=== PATIENT | female | born 1955 | race Caucasian/White ===

== ENCOUNTER 2017-01-22 22:24 | Emergency (ER) | payer MEDICAID ==
[~2017-01-22 22:24] MED LIST: ACET1TAB40 PO; ACET500C5 PO
[2017-01-23] MEDS ORDERED: morphine 4 MG/ML VIAL ONE (03:15)
[2017-01-23] MEDS ORDERED: ONDANSETRON 4 MG INJ ONE (03:15)
[2017-01-23 07:46] LABS: ADD UMIC NO; UR ASCORBIC ACID NEGATIVE (NEGATIVE); UR BILIRUBIN (Dip) NEGATIVE (NEGATIVE); UR BLOOD (Dip) NEGATIVE (NEGATIVE); UR CLARITY CLEAR (CLEAR); UR COLOR YELLOW (YELLOW); UR GLUCOSE (Dip) NEGATIVE (NEGATIVE); UR KETONES (Dip) NEGATIVE (NEGATIVE); UR LEUKOCYTE ESTERASE (Dip) NEGATIVE Leu/ul (NEGATIVE); UR NITRITE (Dip) NEGATIVE (NEGATIVE); UR RBC 2 /HPF (0-5); UR SPECIFIC GRAVITY (Dip) 1.018 (1.003-1.030); UR TOTAL PROTEIN (Dip) NEGATIVE (NEGATIVE); UR UROBILINOGEN (Dip) NEGATIVE (NEGATIVE)
--- NOTE | 2017-01-23 08:33 | RADRPT ---
PROCEDURE: CT ABDOMEN/PELVIS WITHOUT CONTRAST CLINICAL INDICATION: 61-year-old female with right lower quadrant pain. TECHNIQUE: The study was performed utilizing a [employer] VCT 64-slice CT scanner. Direct axia l sections were obtained through the abdomen and pelvis without the use of intravenous contrast mate rial. Sagittal and coronal reformations were obtained. One or more of the following dose reduction t echniques were utilized: automated exposure control, adjustment of the mA and/or kV according to pat ient's size or use of iterative reconstruction technique. The images were reviewed on a PACS workst [employer]. CTD/vol = 15.5 mGy; Total Exam DLP = 930.4 mGy-cm. COMPARISON: None. FINDINGS: Right coronary artery calcifications are noted. There is no evidence for significant pleural effusio n. The liver has a normal size and contour without focal areas of abnormal density. No intrahepatic nor extrahepatic biliary ductal dilatation is seen. The gallbladder is lateral in position but with out calcified stones, significant wall thickening or pericholecystic fluid. No biliary stones are ev ident. The pancreas is without areas of abnormal attenuation. The spleen is identified and has a no rmal size without abnormal density. The adrenal glands are unremarkable. The kidneys are without abn ormal density. No hydroureteronephrosis nor nephroureterolithiasis is evident. The urinary bladder c ontains urine. There is mild retained stool throughout the colon without gross bowel obstruction. T he cecum is in the right upper quadrant. The appendix is markedly diminutive but without abnormal t hickening or periappendiceal inflammatory changes. The uterus is diminutive. There is no significant free fluid. The aortoiliac vessels are mildly calcified but without aneurysmal dilatati on. Degenerative changes are seen within the spine. There is a left hip arthroplasty present. IMPRESSION: 1. No CT evidence for obstructive uropathy or renal calculi. 2. Mild retained stool without obstruction. 3. No CT evidence for appendicitis. 4. Degenerative changes within the spine. 5. Left hip arthroplasty. .Kyle Laguerre MD, Date Time Electronically viewed and signed by .Kyle Laguerre MD, on 01/23/2017 04:05 .[place]
[2017-01-23 10:27] LABS: ABNORMAL IP MESSAGE 1; BASOPHILS % 0.6 % (0.0-2.0); EOSINOPHILS # 0.1 10^3/ul (0.0-0.5); EOSINOPHILS % 2.9 % (0.0-7.0); HEMATOCRIT 38.8 % (37.0-47.0); HEMOGLOBIN 13.1 g/dl (12.0-16.0); LYMPHOCYTES # 1.6 10^3/ul (0.8-2.9); LYMPHOCYTES % 50.5 % (15.0-51.0); MEAN CORPUSCULAR HGB CONC 33.8 g/dl (32.0-37.0); MEAN CORPUSCULAR VOLUME 94.6 fl (82.0-101.0); MEAN PLATELET VOLUME 13.3 fl (7.4-10.4); MONOCYTE # 0.4 10^3/ul (0.3-0.9); MONOCYTES % 12.2 % (0.0-11.0); NEUTROPHILS % 33.5 % (39.0-77.0); PLATELET COUNT 137 10^3/UL (140-415); RED CELL DISTRIBUTION WIDTH 12.6 % (11.5-14.5); WHITE BLOOD COUNT 3.1 10^3/ul (4.8-10.8)
--- NOTE | 2017-01-26 14:03 | ERD ---
ER Documentation Chief Complaint Date/Time DATE: 01/26/17 TIME: 13:47 Chief Complaint abdominal pain HPI This 61 year old female comes in for L mid abd pain and RLQ abd pain for 2 days. Nausea intermittent. The pain is dull. No diarrhea, fever, chills, or vaginal symptoms. Possible constipation. No chest pain. ROS All systems reviewed and are negative except as per history of present illness. Medications Home Meds Active Scripts Acetaminophen with Codeine (Acetaminophen-Cod #3 Tablet) 1 Each Tablet, 1 TAB PO Q6H Y for PAIN, #5 TAB Prov:Nilda Reyes PA-C 03/19/16 Acetaminophen* (Tylophen*) 500 Mg Capsule, 1 CAP PO Q6H Y for PAIN AND OR ELEVATED TEMP, #30 CAP Prov:Nilda Reyes PA-C 03/19/16 Allergies Allergies: Coded Allergies: No Known Allergy (Unverified , 02/28/14) PMhx/Soc History of Surgery: Yes (left hip replacement) Anesthesia Reaction: No Hx Neurological Disorder: No Hx Respiratory Disorders: No Hx Cardiac Disorders: No Hx Psychiatric Problems: No Hx Miscellaneous Medical Probl: Yes (arthritis) Hx Alcohol Use: No Hx Substance Use: No Hx Tobacco Use: No Physical Exam Vitals AFVSS Physical Exam Const: [] No distress Head: Atraumatic Eyes: Normal Conjunctiva ENT: Normal External Ears, Nose and Mouth. Neck: Full range of motion..~ No meningismus. Resp: Clear to auscultation bilaterally Cardio: Regular rate and rhythm, no murmurs Abd: Soft, mild multifocal tenderness without guarding or rebound, non distended. Normal bowel sounds Skin: No petechiae or rashes Back: No midline or flank tenderness Ext: No cyanosis, or edema Neur: Awake and alert Psych: Normal Mood and Affect Result Diagram: 01/23/17 0200 Results 24 hrs Laboratory Tests Test 01/23/17 02:00 01/23/17 07:15 01/23/17 10:59 White Blood Count 3.110^3/ul Red Blood Count 4.1010^6/ul Hemoglobin 13.1g/dl Hematocrit 38.8% Mean Corpuscular Volume 94.6fl Mean Corpuscular Hemoglobin 32.0pg Mean Corpuscular Hemoglobin Concent 33.8g/dl Red Cell Distribution Width 12.6% Platelet Count 09542^3/UL Mean Platelet Volume 13.3fl Neutrophils % 33.5% Lymphocytes % 50.5% Monocytes % 12.2% Eosinophils % 2.9% Basophils % 0.6% Nucleated Red Blood Cells % 0.0/100WBC Neutrophils # (Manual) 1.010^3/ul Lymphocytes # 1.610^3/ul Monocytes # 0.410^3/ul Eosinophils # 0.110^3/ul Basophils # 0.010^3/ul Nucleated Red Blood Cells # 0.010^3/ul Urine Color YELLOW Urine Clarity CLEAR Urine pH 5.0 Urine Specific [place] 1.018 Urine Ketones NEGATIVEmg/dL Urine Nitrite NEGATIVEmg/dL Urine Bilirubin NEGATIVEmg/dL Urine Urobilinogen NEGATIVEmg/dL Urine Leukocyte Esterase NEGATIVELeu/ul Urine Microscopic RBC 2/HPF Urine Microscopic WBC 0/HPF Urine Hemoglobin NEGATIVEmg/dL Urine Glucose NEGATIVEmg/dL Urine Total Protein NEGATIVEmg/dl Lab Scanned Report [id number] Current Medications Medications (Trade) Dose Ordered Sig/Amanda Route PRN Reason Start Time Stop Time Status Last Admin Dose Admin Ondansetron HCl (Zofran Inj) 4 mg STK-MED ONCE .ROUTE 01/23/17 03:15 01/23/17 09:01 DC Morphine Sulfate (morphine) 4 mg STK-MED ONCE .ROUTE 01/23/17 03:15 01/23/17 09:02 DC Procedures/MDM Likely constipation causing abdominal pain. Possible viral intestinal illness as well as evidenced by suppression of WBC count with lymphocytic predominance. Given Toradol and zofran IV as well as a liter of NS. Improved condition. Discharging with magnesium citrate, miralax and naproxen. PCP follow up in 2 days and return precautions. CT abd/pelvis interpretation: I see no acute process other than constipation with retained stool throughout colon. I see no obstruction, fat stranding, free air, or fractures. Departure Diagnosis: Primary Impression: AP (abdominal pain) Additional Impression: Constipation Condition: Stable ROSEMARY PERRY DO Jan 26, 2017 14:03
== END 2017-01-23 07:55 | disposition home or self-care (01) ==
LOC: E/R 22:24
DX: K59.00 Constipation, unspecified (principal); Z96.642 Presence of left artificial hip joint
CPT/HCPCS: 74176; 81003; 85025; J2270; J2405; Z7502

== ENCOUNTER 2017-04-21 22:42 | Emergency (ER) | payer OTHER ==
[~2017-04-21] VITALS: Ht 139.7 cm; Wt 80.4 kg
[2017-04-21 22:49] VITALS: Ht 139.7 cm; Wt 80.4 kg
[2017-04-22] MEDS ORDERED: FAMOTIDINE 20 MG TAB PO STA (02:45)
[2017-04-22 02:55] LABS: BASOPHILS % 0.9 % (0.0-2.0); EOSINOPHILS # 0.1 10^3/ul (0.0-0.5); EOSINOPHILS % 3.2 % (0.0-7.0); HEMATOCRIT 36.3 % (37.0-47.0); HEMOGLOBIN 12.3 g/dl (12.0-16.0); LYMPHOCYTES # 1.5 10^3/ul (0.8-2.9); LYMPHOCYTES % 43.4 % (15.0-51.0); MEAN CORPUSCULAR HEMOGLOBIN 31.8 pg (29.0-33.0); MEAN CORPUSCULAR HGB CONC 33.9 g/dl (32.0-37.0); MEAN CORPUSCULAR VOLUME 93.8 fl (82.0-101.0); MEAN PLATELET VOLUME 11.8 fl (7.4-10.4); MONOCYTE # 0.5 10^3/ul (0.3-0.9); MONOCYTES % 14.9 % (0.0-11.0); NEUTROPHIL # 1.3 10^3/ul (1.6-7.5); NEUTROPHILS % 37.3 % (39.0-77.0); PLATELET COUNT 166 10^3/UL (140-415); RED BLOOD COUNT 3.87 10^6/ul (4.20-5.40); RED CELL DISTRIBUTION WIDTH 12.6 % (11.5-14.5); WHITE BLOOD COUNT 3.4 10^3/ul (4.8-10.8)
--- NOTE | 2017-04-22 02:56 | ERD ---
ER Documentation Chief Complaint Chief Complaint lower back pain radiating to right leg x 1 week HPI Patient is a 62-year-old female who presents with gradual onset, intermittent, moderate pain to the right flank for 2 weeks. She reports having nausea but no vomiting. She reports having subjective fever but has not measured her temperature. She denies dysuria, but reports urinary frequency. She reports one episode of hematuria. She denies constipation or diarrhea. She also reports having 1 week of pain in her right hip that extends to her entire leg. She denies recent fall. She denies leg weakness. She reports numbness to the anterior thigh. She denies leg swelling. ROS All systems reviewed and are negative except as per history of present illness. Medications Home Meds Active Scripts Polyethylene Glycol* (Miralax*) 17 Gm Powd.pack, 17 GM PO DAILY, #7 Prov:JEFERSON STERN MD 04/22/17 Acetaminophen with Codeine (Acetaminophen-Cod #3 Tablet) 1 Each Tablet, 1 TAB PO Q6H Y for PAIN, #5 TAB Prov:Nilda Reyes PA-C 03/19/16 Acetaminophen* (Tylophen*) 500 Mg Capsule, 1 CAP PO Q6H Y for PAIN AND OR ELEVATED TEMP, #30 CAP Prov:Nilda Reyes PA-C 03/19/16 Allergies Allergies: Coded Allergies: No Known Allergy (Unverified , 02/28/14) PMhx/Soc Past medical history: Hypertension Past surgical history: Left hip replacement Social history: Denies tobacco or alcohol History of Surgery: Yes (left hip replacement) Anesthesia Reaction: No Hx Neurological Disorder: No Hx Respiratory Disorders: No Hx Cardiac Disorders: Yes (HTN) Hx Psychiatric Problems: No Hx Miscellaneous Medical Probl: Yes (arthritis) Hx Alcohol Use: No Hx Substance Use: No Hx Tobacco Use: No Smoking Status: Never smoker FmHx Noncontributory Physical Exam Vitals Vital Signs Date Time Temp Pulse Resp B/P Pulse Ox O2 Delivery O2 Flow Rate FiO2 04/22/17 04:56 98.4 55 17 127/78 98 Room Air 04/22/17 03:07 60 17 140/73 98 Room Air 04/21/17 22:49 98.4 85 20 150/75 98 Physical Exam Const: Alert, no acute distress Head: Atraumatic Eyes: Normal Conjunctiva, No pallor, no icterus ENT: Normal External Ears, Nose and Mouth. Mucous membranes moist Neck: Full range of motion. Resp: Clear to auscultation bilaterally, No wheezes, rales Cardio: Regular rate and rhythm, no murmurs Abd: Soft, Nondistended. Mild tenderness in the right flank region without rebound or guarding. No McBurney's point tenderness. No CVA tenderness. No pulsatile mass Skin: No petechiae or rashes Back: No midline or flank tenderness, No Vesicular rash Ext: No cyanosis, or edema. Mild pain with ranging of right hip. 2+ DP pulses bilaterally. Neur: Awake and alert, Strength and sensation full throughout bilateral lower extremities, Except for subtle decreased sensation to the anterior right thigh Psych: Normal Mood and Affect Result Diagram: 04/22/1714404/22/17144 Results 24 hrs Laboratory Tests Test 04/22/17 01:45 04/22/17 03:05 White Blood Count 3.410^3/ul Red Blood Count 3.8710^6/ul Hemoglobin 12.3g/dl Hematocrit 36.3% Mean Corpuscular Volume 93.8fl Mean Corpuscular Hemoglobin 31.8pg Mean Corpuscular Hemoglobin Concent 33.9g/dl Red Cell Distribution Width 12.6% Platelet Count 66084^3/UL Mean Platelet Volume 11.8fl Neutrophils % 37.3% Lymphocytes % 43.4% Monocytes % 14.9% Eosinophils % 3.2% Basophils % 0.9% Nucleated Red Blood Cells % 0.0/100WBC Neutrophils # 1.310^3/ul Lymphocytes # 1.510^3/ul Monocytes # 0.510^3/ul Eosinophils # 0.110^3/ul Basophils # 0.010^3/ul Nucleated Red Blood Cells # 0.010^3/ul Sodium Level 139mmol/L Potassium Level 4.2mmol/L Chloride Level 100mmol/L Carbon Dioxide Level 25mmol/L Anion Gap 18 Blood Urea Nitrogen 17mg/dl Creatinine 0.81mg/dl Glucose Level 95mg/dl Calcium Level 9.3mg/dl Total Bilirubin 0.6mg/dl Direct Bilirubin 0.00mg/dl Indirect Bilirubin 0.6mg/dl Aspartate Amino Transf (AST/SGOT) 52IU/L Alanine Aminotransferase (ALT/SGPT) 40IU/L Alkaline Phosphatase 128IU/L Total Protein 8.2g/dl Albumin 4.7g/dl Globulin 3.50g/dl Albumin/Globulin Ratio 1.34 Lipase 56U/L Urine Color STRAW Urine Clarity CLEAR Urine pH 6.0 Urine Specific [place] 1.009 Urine Ketones NEGATIVEmg/dL Urine Nitrite NEGATIVEmg/dL Urine Bilirubin NEGATIVEmg/dL Urine Urobilinogen NEGATIVEmg/dL Urine Leukocyte Esterase NEGATIVELeu/ul Urine Hemoglobin NEGATIVEmg/dL Urine Glucose NEGATIVEmg/dL Urine Total Protein NEGATIVEmg/dl Current Medications Medications (Trade) Dose Ordered Sig/Amanda Route PRN Reason Start Time Stop Time Status Last Admin Dose Admin Famotidine (Pepcid) 20 mg ONCE STAT PO 04/22/17 02:45 04/22/17 02:48 DC 04/22/17 03:00 Acetaminophen/ Hydrocodone Bitart (Mcdougal (5/325)) 1 tab ONCE ONCE PO 04/22/17 03:00 04/22/17 03:01 DC 04/22/17 03:00 Procedures/MDM MDM: Patient is a 62-year-old female who reports intermittent right flank pain for the last 2 weeks. On exam she has tenderness in a location that is not concerning for cholecystitis or appendicitis. She does not have CVA tenderness , and her UA is negative for leukocytes and blood. There is no pulsatile mass on exam, and the location of pain is not suggestive of aortic aneurysm. She does report having some constipation. Additionally, she reports having pain in her right hip. She denies trauma. There are no findings suggestive of septic joint. She does have history of arthritis and walks with a cane. I suspect that the patient may have lumbar spine disease with nerve impingement and sciatica. Her flank pain could be neuropathic. There is no indication for abdominal imaging at this time. She has no neurological deficits. She was advised on return precautions and need for further close follow-up with a PMD. Given her report of constipation, she was given a prescription for MiraLAX. Departure Diagnosis: Primary Impression: Flank pain Condition: JEFERSON Scherer MD Apr 22, 2017 02:56
[2017-04-22] MEDS ORDERED: HYDROCODONE/APAP (5/325) TAB PO ONE (03:00)
[2017-04-22 03:07] LABS: ALBUMIN 4.7 g/dl (3.3-4.9); ALBUMIN/GLOBULIN RATIO 1.34; BILIRUBIN,INDIRECT 0.6 mg/dl (0-1.1); BILIRUBIN,TOTAL 0.6 mg/dl (0.2-1.3); CALCIUM 9.3 mg/dl (8.4-10.2); CREATININE 0.81 mg/dl (0.44-1.00); POTASSIUM 4.2 mmol/L (3.5-5.1); TOTAL PROTEIN 8.2 g/dl (6.1-8.1)
[2017-04-22 03:27] LABS: ADD UMIC NO; UR ASCORBIC ACID NEGATIVE (NEGATIVE); UR BILIRUBIN (Dip) NEGATIVE (NEGATIVE); UR BLOOD (Dip) NEGATIVE (NEGATIVE); UR CLARITY CLEAR (CLEAR); UR COLOR STRAW (YELLOW); UR GLUCOSE (Dip) NEGATIVE (NEGATIVE); UR KETONES (Dip) NEGATIVE (NEGATIVE); UR LEUKOCYTE ESTERASE (Dip) NEGATIVE Leu/ul (NEGATIVE); UR NITRITE (Dip) NEGATIVE (NEGATIVE); UR SPECIFIC GRAVITY (Dip) 1.009 (1.003-1.030); UR TOTAL PROTEIN (Dip) NEGATIVE (NEGATIVE); UR UROBILINOGEN (Dip) NEGATIVE (NEGATIVE)
[2017-04-22] MEDS ORDERED: POLY17PO6 PO (04:45)
[2017-04-22 04:56] VITALS: BP 127/78; PULSE 55; RESP 17; TEMP 98.4
== END 2017-04-22 04:59 | disposition home or self-care (01) ==
LOC: FTE 22:42 → E/R 04-22 04:59
DX: R10.9 Unspecified abdominal pain (principal); I10 Essential (primary) hypertension; Z96.642 Presence of left artificial hip joint
CPT/HCPCS: 80053; 81003; 83690; 85025; Z7502; Z7610; 99283

== ENCOUNTER 2017-06-08 10:29 | Day surgery (SDC) | END 2017-06-08 17:01 | disposition home or self-care (01) ==

== ENCOUNTER 2019-01-10 05:35 | Day surgery (SDC) | payer OTHER ==
[~2019-01-10] VITALS: Ht 152.4 cm; Wt 80.8 kg
[2019-01-10] VITALS (12 sets, daily range): BP systolic 126–169; BP diastolic 63–101; PULSE 48–77; RESP 10–19; Ht 152.4 cm; Wt 80.8 kg
[~2019-01-10 05:35] MED LIST changes: -ACET1TAB40 PO; -ACET500C5 PO; +CEPH500C PO; +D-ME473S2 PO; +DICL75TA2 PO; +HYDR25TA6 PO; +METO25TA4 PO; +PANT40TA3 PO; +RANI150T5 PO; +SULF-182 GTB
[2019-01-10] MEDS ORDERED: POLYMYXIN/BACITRACIN 1L IRRIG ONE (06:46)
[2019-01-10] MEDS ORDERED: ACETAMINOPHEN 500 MG TAB PO ONE (07:00)
[2019-01-10] MEDS ORDERED: CEFAZOLIN 2 GM/50 ML (PMX) 50 ML IVPB SCH (07:00)
--- NOTE | 2019-01-10 07:14 | PREAC ---
Date/Time of Note Date/Time of Note DATE: 01/10/19 TIME: 07:11 Anesthesia Eval and Record Evaluation Time Pre-Procedure Interview DATE: 01/10/19 TIME: 07:11 Age 63 Sex female NPO: 8 hrs Preoperative diagnosis painful orthopedic hardware Planned procedure Hardware removal metatarsal osteotomies w/ reduction of the subluxation and creation of normal metatarsal Past Medical History Past Medical History: Includes Cardio: HTN Musculoskeletal: Osteoarthritis GI: GERD (under control w/ meds), Obesity Surgery & Anesthesia Issues No known issue (L hip surgery, L foot surgery) Meds Anticoagulation: No Beta Rodrigue within 24 hr: No Reason Beta Rodrigue not given: Pt. not on B-Rodrigue Reported Medications Dextromethorphan Hb-Promethazine Hcl* (Promethazine DM* Syrup) 473 Ml Syrup, 5- 10 ML PO Q6 PRN for COUGH, ML 06/08/17 Pantoprazole* (Protonix*) 40 Mg Tablet.dr, 40 MG PO DAILY, TAB 06/08/17 Hydrochlorothiazide* (Hydrochlorothiazide*) 25 Mg Tab, 25 MG PO DAILY, #30 TAB 06/08/17 Current Medications Cefazolin Sodium/ Dextrose 50 ml @ 100 mls/hr ONCE IVPB ; Start 01/10/19 at 07:00; Stop 01/10/19 at 23:59 Meds reviewed: Yes Allergies Coded Allergies: No Known Allergy (Unverified , 01/09/19) Allergies Reviewed: Yes Labs/Studies Labs Reviewed: Reviewed by anesthesiologist test: N/A Pre-procedure Exam Last vitals Vital Signs Date Temp Pulse Resp B/P (MAP) Pulse Ox O2 O2 Flow FiO2 Time Delivery Rate 01/10/19 97.2 64 19 127/71 99 Room Air 06:38 (89) Airway: Adequate mouth opening, Adequate thyromental dist Mallampati: Mallampati II Teeth: Abnormal (teeth in poor condition, multiple broken teeth, very loose L upper molar, pt/family aware of risks of teeth damage ) Lung: Normal Heart: Normal ASA Physical Status ASA physical status: 2 Emergency: None Planned Anesthetic General/MAC: ETT, MAC Pre-operative Attestations Prior to commencing anesthesia and surgery, the patient was re-evaluated, there was verification of: *The patient's identity *The results of appropriate recent lab work and preoperative vital signs *The above evaluation not changing prior to induction *Anesthetic plan, risk benefits, alternative and complications discussed with patient/family; questions answered; patient/family understands, accepts and wishes to proceed. Air Turning Machine Feeder used GENOVEVA WEINER Jan 10, 2019 07:14
[2019-01-10] MEDS ORDERED: morphine 2 MG INJ IV PRN ×2 (07:30)
[2019-01-10] MEDS ORDERED: LABETALOL HCL 20MG INJ IV PRN (07:30)
[2019-01-10] MEDS ORDERED: DIPHENHYDRAMINE 50 MG INJ IV PRN (07:30)
[2019-01-10] MEDS ORDERED: ONDANSETRON 4 MG INJ IV PRN (07:30)
[2019-01-10] MEDS ORDERED: FENTAnyl 50 MCG/ML VIAL IV PRN (07:30)
[2019-01-10] MEDS ORDERED: HYDROmorphONE 1 MG/5 ML IV SYRINGE IV PRN ×3 (07:30)
[2019-01-10] MEDS ORDERED: ALBUTEROL 0.083% (NEB) 2.5 MG/3 ML AMP HHN PRN (07:30)
[2019-01-10] MEDS ORDERED: hydrALAzine 20 MG INJ IV PRN (07:30)
[2019-01-10] MEDS ORDERED: OXYCODONE/ACETAMINOPHEN (5/325) TAB PO PRN (07:30)
[2019-01-10] MEDS ORDERED: EPHEDrine 25 MG/5 ML SYG IV PRN (07:30)
[2019-01-10] MEDS ORDERED: MIDAZOLAM 1 MG/ML 2 ML INJ ONE (07:34)
[2019-01-10] MEDS ORDERED: CEFAZOLIN 1 GM INJ ONE (07:34)
[2019-01-10] MEDS ORDERED: PROPOFOL 40 ML ONE ×2 (07:34→08:37)
[2019-01-10] MEDS ORDERED: FENTAnyl 50 MCG/ML VIAL ONE ×2 (07:34→09:42)
--- NOTE | 2019-01-10 07:36 | HPN ---
Date/Time of Note Date/Time of Note DATE: 01/10/19 TIME: 07:36 Interval H&P Admission Note Pt. seen H&P reviewed: No system changes AIDEN NJ DPM Jan 10, 2019 07:36
[2019-01-10] MEDS ORDERED: LIDOCAINE 2% (MDV) 20 ML INJ ONE (07:55)
[2019-01-10] MEDS ORDERED: BUPIVACAINE 0.5% (SDV) 30 ML INJ ONE (07:55)
[2019-01-10] MEDS ORDERED: EPHEDrine 25 MG/5 ML SYG ONE (08:00)
[2019-01-10] MEDS ORDERED: PHENYLephrine (100 MCG/ML) 10ML SYG ONE (08:20)
[2019-01-10] MEDS ORDERED: KETOROLAC 30 MG INJ ONE (09:30)
--- NOTE | 2019-01-10 09:54 | PAC ---
Date/Time of Note Date/Time of Note DATE: 01/10/19 TIME: 09:54 Post-Anesthesia Notes Post-Anesthesia Note Last documented vital signs Vital Signs Date Temp Pulse Resp B/P Pulse Ox O2 O2 Flow FiO2 Time (MAP) Delivery Rate 01/10/19 97.2 99.1 64 72 19 17 127/71 99 72 Room 06:38 094 (33) 161 Air face mask 6L Activity: WNL Respiratory function: WNL Cardiovascular function: WNL Mental status: Baseline Pain reasonably controlled: Yes Hydration appropriate: Yes Nausea/Vomiting absent: Yes GENOVEVA WEINER Jan 10, 2019 09:54
--- NOTE | 2019-01-10 09:56 | OPR ---
Date/Time of Note Date/Time of Note DATE: 01/10/19 TIME: 09:49 Operative Report Procedure Date: Jan 10, 2019 Preoperative Diagnosis Left foot recurrent bunion deformity Painful orthopedic hardware left foot Subluxation left second metatarsal phalangeal joint Subluxation left third metatarsophalangeal joint Hammertoe left second toe recurrent Hammertoe left third Left foot pain Hypertension Moderate obesity Postoperative Diagnosis Left foot recurrent bunion deformity Painful orthopedic hardware left foot Subluxation left second metatarsal phalangeal joint Subluxation left third metatarsophalangeal joint Hammertoe left second toe recurrent Hammertoe left third Left foot pain Hypertension Moderate obesity Operation/Procedure Performed Removal of painful hardware left foot Left [place] procedure Bunionectomy left foot Left second metatarsal head osteotomy Left second metatarsophalangeal joint release Left third metatarsal head osteotomy Left third metatarsophalangeal joint release Intraoperative use and interpretation of fluoroscopy Surgeon see signature line Structural Worker None Anesthesia Type: MAC Estimated Blood Loss: 0 - 10 ml's Transfusion none Specimen Bone from the left foot Grafts/Implants none Complications none Pt Condition Post Procedure: stable Disposition: PACU Indications This is a pleasant 63-year-old patient who has been suffering with painful hardware left foot with recurrent hammertoe and bunion deformity and subluxation of the second and third metatarsal phalangeal joints causing significant pain in disability for the patient with her regular activities. Patient was evaluated and was found to have significant deformity of the left forefoot. Patient has failed the following treatments: Shoe gear modification, activity modification, NSAIDs, pain medication etc. Patient seeks surgical management. Recommended procedure: Removal left foot with surgical correction of recurrent bunion deformity along with second and third metatarsal head osteotomies. Risks and complications of this type of surgery was discussed with patient in great detail. Risks and complications discussed included, but are not limited to, postoperative infection, postoperative pain, hardware failure, malunion, nonunion, delayed union, failure of surgery to correct the problem, need for additional surgical procedures, deep venous thrombosis, limb loss and loss of life. Patient understands the discussion and agrees to the procedure. An informed consent was signed, obtained and placed in the chart. No guarantees or warrantees was given or implied as to the outcome of the procedure either in verbal or written form. Procedure Description The patient was seen in the preoperative unit. The proposed surgery was discussed with patient in great detail. Risks and complications of this type of surgery was discussed with patient in great detail. Opportunity was given to patient to ask questions and all questions were answered. The patient acknowledges understanding of the discussion. An informed consent was then obtained, signed and placed in the chart. Patient was taken to the operating room and was placed on the operating table in the supine position. All bony prominences were padded properly. A timeout was called by the circulating nurse. Everyone in the operating room was agreeable to the timeout. The patient was then placed under IV sedation by the anesthesiologist and I injected the left ankle with 20 cc of a one-to-one mixture of 2% lidocaine plain and 0.5% Marcaine plain. A pneumatic ankle tourniquet was applied to the left ankle. The left lower extremity was scrubbed, prepped, and draped in the usual aseptic manner. An Esmarch bandage was utilized to exsanguinate left lower extremity and the tourniquet was inflated to 250 mmHg pressure. Procedure: Removal of painful hardware of the left foot. A 6 cm incision was made over the dorsal medial aspect of the left first metatarsal phalangeal joint using a #10 blade along the previous incision that was there. Dissection was deepened through subcutaneous layer with sharp and blunt dissection with care being taken to identify and protect vital neurovascular structures. The first dorsal phalangeal joint capsule was incised dorsally with a #15 blade and the first MPJ was exposed with periosteal dissection. The head of the screw was immediately found on the head of the first metatarsal bone on the medial aspect of the joint, exposed fully and inside the joint. The screw was then removed and passed to the back table. Intraoperative fluoroscopy was used for guidance. Procedure: Bunionectomy left foot A power saw was used to cut the large bony prominence present on the medial aspect of the head of the first metatarsal bone. Rough edges were submitted as necessary. A chevron type osteotomy was made at the head of the first metatarsal and the capital fragment was translated laterally the desired position. An 18 mm headless cannulated screw was used for primary fixation using lag technique. Excess bone on the medial shelf was cut and passed in the field. Rough edges were smoothed using a power rasp. The wound was flushed with copious muscle sterile normal saline. Procedure: Anirudh procedure left hallux Attention was then directed to the medial aspect of the proximal phalanx of the hallux. The incision was extended into this area. Periosteal dissection was made and the medial aspect of the proximal phalanx was exposed. A power saw was used to cut out a wedge of bone from the medial aspect of the base of the proximal phalanx. The wedge of bone was then removed and the hallux was stra ightened from its abducted position. A staple was used for internal fixation to reduce the hallux in the corrected position. Procedure: Left second metatarsal phalangeal joint release An incision was made over the dorsal aspect of the left second metatarsal phalangeal joint using a #15 blade. Dissection was deepened to the dorsal joint capsule with care being taken to identify and protect vital neurovascular structures. Bleeders were cauterized as necessary. The dorsal joint capsule was then incised using a #15 blade and the joint was exposed. Subluxation noted at the second metatarsophalangeal joint. Subluxation was severe. The McClamary elevator was used to release the joint. The dorsal aspect of the metatarsal neck was then dissected using a periosteal elevator and was prepared for metatarsal head osteotomy. Procedure: Left second metatarsal head osteotomy Next, a power saw was used to cut the metatarsal neck at 45 degrees. The head of the metatarsal was then translated proximally. Fixation was achieved using a 0.062 K wire through the second toe into the second metatarsal head and into the metatarsal shaft. Procedure: Left third metatarsal phalangeal joint release Next, a third incision was made over the dorsal aspect of the third metatarsal phalangeal joint using a #15 blade and the joint was exposed similarly in the second metatarsophalangeal joint procedure. Using a McGlamry elevator, the third metatarsal phalangeal joint was released. The neck of the metatarsal was prepped for osteotomy. Procedure: Left third metatarsal head osteotomy Using a power saw, the third metatarsal neck was cut at 45 degree angle and the head was translated proximally and fixated with a 2.0 screw using lag technique. Excess bone was removed and rough edges were smoothed using a hand rasp. All incisions were then flushed with copious amounts of sterile normal saline. Joint capsule of the first MPJ was closed using 3-0 Vicryl suture. Subcutaneous layer was closed using 4-0 Vicryl suture and the skin was closed using 5-0 Monocryl in subcuticular stitch pattern. Next, the metatarsal phalangeal joint capsules of the second and third MPJs were closed using 4-0 Vicryl suture. Subcutaneous layers were closed using 4-0 Vicryl suture and the skin was closed using 5-0 Monocryl in subcuticular stitch pattern. Steri-Strips were applied. Postoperative injection was given with 20 cc of 0.5% Marcaine plain. The tourniquet was deflated at this time and prompt hyperemic response was noted to digits of the left foot. The patient tolerated procedure and anesthesia well. She was transferred to recovery with vital signs stable and rasp status intact to the left foot. Patient will remain partial weightbearing on the left foot with crutches and a postop shoe. Postoperative orders were written. Patient will follow up in the office in 1 week. AIDEN NJ DPM Jan 10, 2019 09:56
== END 2019-01-10 11:50 | disposition home or self-care (01) ==
LOC: SDS 05:35
PROVIDERS: ATTEND Podiatrist Foot & Ankle Surgery
DX: T84.84XD Pain due to internal orthopedic prosthetic devices, implants and grafts, subsequent encounter (principal); Y83.8 Other surgical procedures as the cause of abnormal reaction of the patient, or of later complication, without mention of misadventure at the time of the procedure; Y79.3 Surgical instruments, materials and orthopedic devices (including sutures) associated with adverse incidents; M20.42 Other hammer toe(s) (acquired), left foot; M21.612 Bunion of left foot; I10 Essential (primary) hypertension
CPT/HCPCS: 28285; 28299; 73630; 88300; 88304; 88311; J0690; J1170; J1885; J2250; J2370; J3010; Z7512; Z7610

== ENCOUNTER 2019-01-17 17:24 | Inpatient (IN) | payer OTHER ==
[~2019-01-17] VITALS: Ht 152.4 cm; Wt 86.1 kg
[~2019-01-17 17:24] MED LIST changes: -D-ME473S2 PO; -HYDR25TA6 PO
[2019-01-17] MEDS ORDERED: SOD CHLORIDE 0.9% 500 ML IV STA (22:17)
[2019-01-17] MEDS ORDERED: morphine 4 MG/ML VIAL IV STA (22:17)
[2019-01-17] MEDS ORDERED: PIPER-TAZO 3.375 GM IV (PMX) 100 ML IVPB STA (22:17)
[2019-01-17] MEDS ORDERED: ONDANSETRON 4 MG INJ IV STA (22:17)
[2019-01-17] MEDS ORDERED: VANCOMYCIN 1 GM (PMX) 250 ML IVPB ONE (22:30)
[2019-01-18 01:56] VITALS: Ht 152.4 cm; Wt 86.1 kg
[2019-01-18 02:30] VITALS: BP 138/68; PULSE 66; RESP 16
[2019-01-18] MEDS ORDERED: ACETAMINOPHEN 325 MG TAB PO PRN (04:00)
[2019-01-18] MEDS ORDERED: ONDANSETRON 4 MG INJ IV PRN (04:00)
[2019-01-18] MEDS ORDERED: HYDROCODONE/APAP (5/325) TAB PO PRN (04:00)
[2019-01-18] MEDS ORDERED: VANCOMYCIN IV PER PHARMACY XX SCH (04:00)
[2019-01-18] MEDS: KETOROLAC 15 MG INJ IV PRN ×2 (05:09→20:49)
[2019-01-18] MEDS: PANTOPRAZOLE (EC) 40 MG TAB PO SCH (05:09)
[2019-01-18] MEDS: SOD CHLORIDE 0.9% 1,000 ML IV SCH (05:09)
[2019-01-18 07:38] VITALS: BP 124/58; PULSE 66; RESP 16
[2019-01-18] MEDS: CEFEPIME 1GM/50 ML (PMX) 50 ML IVPB SCH ×2 (09:00→20:29)
[2019-01-18] MEDS: METOPROLOL 25 MG TAB PO SCH (09:01)
[2019-01-18] MEDS: VANCOMYCIN 1 GM 250 ML IVPB SCH ×2 (10:38→22:28)
[2019-01-18 15:39] VITALS: BP 117/51; PULSE 50; RESP 17
[2019-01-18 19:20] VITALS: BP 140/65; PULSE 52; RESP 20
[2019-01-19 01:12] VITALS: BP 127/59; PULSE 61; RESP 18
[2019-01-19] MEDS: PANTOPRAZOLE (EC) 40 MG TAB PO SCH (05:40)
[2019-01-19] MEDS: SOD CHLORIDE 0.9% 1,000 ML IV SCH (05:41)
[2019-01-19 07:38] VITALS: BP 130/63; PULSE 50; RESP 18
[2019-01-19] MEDS: METOPROLOL 25 MG TAB PO SCH (08:54)
[2019-01-19] MEDS: KETOROLAC 15 MG INJ IV PRN (08:55)
[2019-01-19] MEDS: CEFEPIME 1GM/50 ML (PMX) 50 ML IVPB SCH (10:37)
[2019-01-19] MEDS: VANCOMYCIN 1 GM 250 ML IVPB SCH (11:31)
[2019-01-19] MEDS ORDERED: HYDROCODONE/APAP (5/325) TAB PO PRN (13:00)
[2019-01-19] MEDS: ENOXAPARIN 40 MG/0.4 ML SYG SC SCH (13:54)
[2019-01-19] MEDS ORDERED: CEFTRIAXONE 1 GM/50 ML (PMX) 50 ML IVPB SCH (15:00)
[2019-01-19 15:57] VITALS: BP 186/74; PULSE 55; RESP 18
[2019-01-19 20:15] VITALS: BP 123/57; PULSE 60; RESP 16
[2019-01-19] MEDS: CEPHALEXIN 500 MG CAP PO SCH (21:28)
[2019-01-19] MEDS: TRIMETHOPRIM/SULFAMETHOX (DS) TAB GTB SCH (21:28)
[2019-01-20 01:57] VITALS: BP 116/56; PULSE 61; RESP 16
[2019-01-20] MEDS: PANTOPRAZOLE (EC) 40 MG TAB PO SCH (05:25)
[2019-01-20] MEDS: CEPHALEXIN 500 MG CAP PO SCH ×3 (05:25→21:32)
[2019-01-20 07:35] VITALS: BP 128/60; PULSE 55; RESP 18
[2019-01-20] MEDS: TRIMETHOPRIM/SULFAMETHOX (DS) TAB GTB SCH ×2 (08:49→21:32)
[2019-01-20] MEDS: METOPROLOL 25 MG TAB PO SCH (08:49)
[2019-01-20] MEDS: ENOXAPARIN 40 MG/0.4 ML SYG SC SCH (08:51)
[2019-01-20 14:20] VITALS: BP 132/63; PULSE 48; RESP 17
[2019-01-20 19:32] VITALS: BP 135/61; PULSE 54; RESP 18
[2019-01-20] MEDS: KETOROLAC 15 MG INJ IV PRN (21:36)
[2019-01-21 01:43] VITALS: BP 128/57; PULSE 56; RESP 20
[2019-01-21] MEDS: PANTOPRAZOLE (EC) 40 MG TAB PO SCH (05:49)
[2019-01-21] MEDS: CEPHALEXIN 500 MG CAP PO SCH ×2 (05:49→14:03)
[2019-01-21 07:21] VITALS: BP 125/58; PULSE 50; RESP 18
[2019-01-21] MEDS: TRIMETHOPRIM/SULFAMETHOX (DS) TAB GTB SCH (08:50)
[2019-01-21] MEDS: METOPROLOL 25 MG TAB PO SCH (08:53)
[2019-01-21] MEDS: ENOXAPARIN 40 MG/0.4 ML SYG SC SCH (08:53)
[2019-01-21 14:37] VITALS: BP 132/60; PULSE 61; RESP 18
== END 2019-01-21 18:45 | disposition home health service (06) | DRG 920 ==
LOC: E/R 17:24 → 2NE 01-18 00:58
PROVIDERS: ADMIT Internal Medicine; ATTEND Internal Medicine
DX: L76.82 Other postprocedural complications of skin and subcutaneous tissue (principal); L03.116 Cellulitis of left lower limb; I10 Essential (primary) hypertension; E66.9 Obesity, unspecified; Z68.37 Body mass index [BMI] 37.0-37.9, adult
CPT/HCPCS: 36415; 80048; 80053; 80202; 81003; 83690; 83735; 84100; 85025; 96365; 96375; 97110; 97116; 97162; 97530; J0692; J1650; J1885; J2270; J2405; J2543; J3370; J7030; J7040